=== PATIENT | male | born 1985 | race Caucasian/White ===

== ENCOUNTER 2023-12-22 23:50 | Emergency (ER) | payer BC, SELFPAY ==
[2023-12-23 00:07] VITALS: BP 141/99
[2023-12-23] MEDS: NORCO 5/325 1 TABLET PO (01:53)
[2023-12-23] MEDS: DELTASONE 40 MG PO (01:53)
--- NOTE | 2023-12-23 02:39 | ED.MUSCINJ ---
HPI-Injury
General
Chief Complaint: Musculo-Skeletal Complaint
Source: patient
Exam Limitations: none
Time Seen by Provider: 12/23/23 00:48
Nursing documentation reviewed up to this point in time: agreed with
Travel History
Have you had any contact with someone who has COVID-19?: No
Do you have any symptoms of coronavirus? Fever > 100 degrees, chills, cough, shortness of breath, sore throat, loss of taste or smell, muscle aches, or headache?: No
History of Present Illness-Injury
Is this injury a work related problem?: No
Is pt an associate of [facility]?: No
Initial Injury comments:
Patient to ED with complaint of left shoulder pain. Pain started 2 days ago. No history of trauma. Denies fever/chllls, recent illness. No prior history of same.
Past History
Past History
ED Past Medical History: None
Review of Systems
Review of Systems
Allergies reviewed?: Yes
All Other Systems: ROS reviewed and negative except as documented in HPI and ROS
Constitutional: Reports no symptoms
Musculoskeletal: Reports joint pain ([place] shoulder pain)
Skin: Reports no symptoms
Neurological: Reports no symptoms
Psychiatric: Reports no symptoms
Musculoskeletal Injury Exam
Musculoskeletal Injury Exam
Left Lateral Shoulder:
Pain with Movement?: Moderate
Tender to palpation?: Moderate
Soft tissue swelling?: None
External deformity and angulation?: None
Joint effusion?: None
Hematoma-local bleeding into tissue?: None
Strain- Sprain- Tear (Connective tissue injury)?: None
Crepitus with movement?: No
Joint instability?: No
Malalignment/deformity?: No
Range of motion: Limited
Distal skin color and temperature: normal-warm & good color
Normal distal neurovascular exam?: Yes
Peripheral Pulses: radial (left): 3+
Phy Exam
General Physical Exam
General Presentation: well appearing and no apparent distress
General age: appears stated age
General Skin: warm and dry
General Habitus: normal
General Mental: alert
Musculoskeletal Exam
Musculoskeletal Exam: neuro vasc intact
Skin Exam
Skin Exam: normal color, warm/dry and no rash
Psychiatric Exam
Psychiatric Exam: normal mood/affect
Injury Course
Orders/Labs/Results
Orders:
Orders
12/23/23 00:12
CR Shoulder - Left Min 2 View* Urgent
Reason For Exam: non traumatic pain
12/23/23 01:48
Hydrocodone 5/APAP 325 [[place] 5/325] 1 tablet PO NOW STA
Prednisone [Deltasone] 40 mg PO NOW STA
*Radiology
Radiology exam reviewed: radiology read reviewed
*Pulse Oximetry
Patient hypoxic: no
*Critical Care Note
Total Time (30-74mins, 75-104mins- exclusive of procedures): Not Applicable
ED Attending Note
-
Portions of this chart may have been created with voice recognition software.� Occasional wrong word or��sound alike� substitutions may have occurred due to the inherent limitations of voice recognition software.
Discharge Plan
Departure
Patient Disposition: Home (Routine Discharge)
Date of Disposition: 12/23/23
Time of Disposition: 01:48
Patient with high blood pressure during this ER visit?: No
Condition: Good
Covid-19: Not Applicable
Discharge Problem:
Acute shoulder pain
Instructions: Bursitis (DC), Ibuprofen, Using Cold for Pain
Prescriptions:
New
hydrocodone-acetaminophen 5-325 mg tablet
1 tab PO Q4H PRN (Reason: Pain) Qty: 10 0RF
prednisone 10 mg Tablet
See Rx Instructions .ROUTE .COMPLEX Qty: 30 0RF
Rx Instructions:
Take By Mouth:
40 mg daily x3 days, 30 mg daily x3 days,
20 mg daily x3 days, 10 mg daily x3 days.
No Action
hydrocodone-acetaminophen 1 TABLET tablet
1 tab PO Q4HPRN Qty: 10 0RF
diclofenac sodium 75 MG tablet,delayed release (DR/EC)
75 mg PO BID Qty: 10 0RF
oxycodone-acetaminophen [Xartemis XR] 1 EACH tab,oral only,IR - ER, biphase
2 ea PO BID PRN (Reason: moderate to severe pain) Qty: 60 0RF
Referrals:
Jose Leone Jr., [Family Provider] -
Braeden Gil MD [Active] - Follow up in 5-7 days (Follow up if your symptoms do not improve over the next week.)
Interventions
Interventions:
*Nursing Disposition Last Done: 12/23/23 01:57
ED-Musculoskeletal Assessment Last Done: 12/23/23 01:00
Discharge Date and Time
Discharge Date/Time: 12/23/23 01:57
== END 2023-12-23 01:57 | disposition home or self-care (01) ==
LOC: EMR 23:50
PROVIDERS: EMERGENCY PHYSICIAN Emergency Medicine; FAMILY PHYSICIAN Family Medicine
DX: M25.512 Pain in left shoulder (principal)
CPT/HCPCS: 99283; 73030